=== PATIENT | male | born 2000 | race Caucasian/White ===

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

== ENCOUNTER 2022-03-22 07:00 | Outpatient (RCR) | payer OTHER, SELFPAY ==
--- NOTE | 2022-03-22 09:05 | BH.SGPN.GN ---
Behaviors/Verbalizations/Mental Status: [] Eye contact is good. Motor activity is appropriate. Appearance is casual. Speech is Appropriate. Mood is anxious. Affect is congruent. Thoughts are linear and logical. No evidence of psychosis. Reviewed daily check in sheet and pt reports 2/5 for suicidal thoughts and 2/5 for intent. Pt completed [place] prior to entering group. Client Response/Progress/Benefit: [] Pt participated when prompted. Attentive. Daily symptom tracker notes 4/5 for anxiety, 3/5 for depression, and 2/5 for anger. Introduced himself to the group as this is his first day in IOP. Shared that he had completed the program previously and found it very helpful. He was vague regarding his return however stated that he has some setbacks recently and is hopeful that IOP will help him get better. I think I made the right choice returning. No progress noted as this was pt's first day in IOP. Benefited from group support, encouragement, and feedback. Will continue in IOP to maintain safety, prevent decompensation/re-admission to psych, and to decrease intrusive healthy anxiety thoughts. Narrative Note: []
--- NOTE | 2022-03-22 10:15 | BH.SGPN.GN ---
Behaviors/Verbalizations/Mental Status: [] Client alert and oriented, casually dressed and groomed. Eye contact good. Motor activity appropriate. Speech within normal limits. Affect congruent, mood euthymic. Thoughts linear, logical, no signs of hallucinations or delusions. Client Response/Progress/Benefit: [] Client responded well to session AEB sharing and listening attentively to others. Client provided examples of what weakens our safety net of supports indicating that not having enough supports to lean on can cause issues. Clinician provided psychoeducation on types of support including internal and external support, with client identifying friends and hobbies as other supports. Client participated in experiential activity illustrating the importance of having multiple social supports. Client provided supportive feedback and problem solving throughout group activity. Client participated in group processing of the activity, stating having more social support makes ?things easier?. Client appeared to benefit from increased knowledge of the benefits of social support and greater self-awareness. Client's first day in IOP program and will continue IOP treatment to continue increasing application of healthy coping skills and decreasing negative self-talk to improve daily functioning. Narrative Note: []
--- NOTE | 2022-03-22 12:34 | BH.COMM_ITS ---
Communication Note - Communication with Client Communication Note: Met with pt to complete initial paperwork and [facility], no changes since initial intake assessment. [facility] indicated moderate-severe risk. Pt admits to having passive SI that is fleeting since he was discharged from [facility], but pt denies any intent or plan since discharge. Pt was admitted for SI with methods and intent. Pt reports he can more easily control the thoughts now. Future oriented and hopeful about the program. Denies any access to guns or weapons. Reports ability to maintain safety today. Consulted with Dr. Huizar with plan to admit to [facility] level of care with dx of MDD F33.2 and ALEJANDRO F41.1
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
--- NOTE | 2022-03-23 13:08 | BH.DR.ITP ---
Initial Treatment Plan Patient Information Visit Information: ADMISSION DATE: EXPECTED LOS: 4-6 weeks Problems/Symptoms Problem #1:: Depression Symptom:: Sadness, hopelessness, worthlessness, suicidal ideation, history of self-harm, decreased concentration, low energy Problem #2:: Anxiety Symptom:: Worry, rumination, panic attacks, avoidance
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
--- NOTE | 2022-03-29 13:59 | BH.MTP ---
[facility] Treatment Plan - Patient Information Program Physician:: Evelyn Huizar Primary Therapist:: Heri Blas - Psychiatric Diagnoses Psychiatric Diagnoses:: 1. Major depressive disorder, recurrent, severe without psychosis. 2. Illness anxiety disorder (F45.21). 3. Generalized anxiety disorder. 4. Borderline personality disorder Diagnosis Code(s):: F33.2 - Estimated LOS Estimated LOS (in weeks):: 6 Problem/Goal #1 - Problem/Goal #1 Stated Goal:: Alleviate depressive symptoms and return to previous level of effective functioning AEB by self-report and reduction on the depression and suicidal ideation domains on the DSM-5 outcome measurement. Description of Barriers: intrusive thoughts, long-standing depression, health anxiety, high expectations of self, hx of minimalizing symptoms. Functional Impact: recent psychiatric admission due to suicidal ideations with plan, intrusive health anxiety thoughts often lead to overwhelming anxiety, depression, and distress causing SI. Goal Relevant Strengths/Supports: outgoing, intelligent, motivation, treatment has been effective in the past. - Objectives Objective #1 Stated Objective: Client will work with therapist to develop a ?crisis plan? or concrete plan to implement when overwhelmed emotionally which includes emergency telephone numbers, a list of internal/external coping strategies for SI/overwhelming emotions, lists of supports, warning signs, positive aspects of life, and motivations.? Interventions: Through individual and group counseling will provide education and resources on healthy internal/external coping skills and support to utilize when overwhelmed. Discharge Criteria: Pt will have completed a crisis management plan to implement when overwhelmed with emotions. Target Date: 04/13/22 Review Date: 05/05/22 Objective #2 Stated Objective: Pt will identify at least 2-3 negative self-talk messages used to reinforce depression and guilt and replace thoughts with positive, realistic messages Interventions: Through individual and group counseling will help pt identify distorted, negative beliefs about self and replace with more realistic, affirmative messages. Therapist will use CBT to help pt increase insight to the connection between thoughts, emotions, and behaviors. Therapist will encourage pt to practice thought challenging. Discharge Criteria: Pt will have achieved this goal when can verbalize at least 2 negative self-talk messages and effectively replace those thoughts with affirmative, realistic messages. Target Date: 04/13/22 Review Date: 05/05/22 Problem/Goal #2 - Problem/Goal #2 Stated Goal:: Stabilize anxiety level while increasing ability to function on a daily basis AEB self-report and reduction on scores on the anxiety domain of the DSM-5 outcome measures. Description of Barriers: intrusive thoughts related to health, long-standing depression, health anxiety, high expectations of self, hx of minimalizing symptoms. Functional Impact: Intrusive health anxiety thoughts causing panic attacks, isolation, reassurance seeking, and inability to work. Goal Relevant Strengths/Supports: outgoing, intelligent, motivation, treatment has been effective in the past. - Objectives Objective #1 Stated Objective: Pt will identify 2-3 intrusive/ruminating thoughts and learn 2-3 strategies to overcome, replace, or reduce the value of those thoughts. Interventions: Through individual and group counseling will help pt increase awareness of cognitive distortions, false comfort, and myths about intrusive thoughts. Therapist will encourage pt to focus on stressors in her control and teach pt distress tolerance techniques. Therapist will utilize distractions, mindfulness, and CBT-based strategies to help pt learn how to more effectively manage and cope with her intrusive, health-related thoughts. Therapist will use a workbook to give pt homework and exercises to practice. Discharge Criteria: pt will have met this goal when can report least 2 ways to cope with intrusive thoughts that exacerbate anxiety. Target Date: 04/13/22 Review Date: 05/05/22 Objective #2 Stated Objective: Pt will identify 2-3 anxiety triggers and 2 coping skills to use when feeling anxious to manage anxiety as shown by reducing DSM-5 scores for anxiety domain Interventions: Through group and individual sessions, pt will gain awareness of anxiety triggers and learn numerous techniques to manage anxiety symptoms. Therapist will teach mindfulness and other calming techniques to manage symptoms and increase distress tolerance skills. Discharge Criteria: Pt will have met this goal when pt can identify at least 2 triggers and 2 ways to cope with anxiety and show a reduction of DSM-5 scores for anxiety. Target Date: 04/13/22 Review Date: 05/05/22
--- NOTE | 2022-03-29 13:59 | BH.MDN ---
Multi-Disciplinary Note - Note 45-min Individual Time Started:: 09:10 Date: 03/29/22 Purpose of session/treatment goals addressed:: Reviewed treatment progress and current symptoms. Worked with patient on identifying treatment plan goals. Eye Contact:: Good Motor Activity:: Restless Speech:: Appropriate Mood:: Anxious Affect:: Congruent Thoughts:: Linear, Logical, No evidence of hallucinations/delusions noted Staff Interventions:: psychoeducation on: - intrusive thoughts Client Response:: Pt reports that he is doing better since last IOP visit which was on 03/23/22. Believes that his anxiety has improved however continues to impact his functioning. When asked about his goals pt states to enjoy life more and have less anxiety. Goals include being able to sit through a movie w/o getting overwhelmed with anxiety. Another goal is to have his friend over. Shared that he has not invited his friend over in several months because he is fearful that he will have panic attacks or have to leave abruptly due to his anxiety. Work has also been impacted. Another goal is to get back to his old exercise routine. Currently he is fearful to exercise intensely fearing it may have adverse health effects (heart attack, racing heart, high BP, ETC). Endorses significant health anxiety related to having a heart attack, stroke, or undiagnosed cancer. Hx of obsessive thoughts with mild compulsions since age 7, however in the years preceding his cancer dx he has been hyper-focused on his health. Reassurance seeking behaviors to ease anxiety (Bloodwork, CT scan, medical visits) and seeking reassurance from support that he is going to be OK. Responded well to psychoeducation on health anxiety. Risks/Concerns:: Denies active suicidal ideations, plan, or intent. Currently calm however can escalate quickly when intrusive thoughts occur. Progress Toward Goals/Plan:: Progress noted per pt report. He is utilizing distraction and some thought reframing skills since last visit. He had a CT scan of his brain and bloodwork last week which has decreased some health anxiety, however continues to seek reassurance from his mother that he is doing well. Has begun to take daily walks to distract and he believes this to ease his health anxiety if I'm ok walking than I probably won't have a heart attack. Overall functioning continues to be impacted by anxiety and intrusive thoughts. Pt was given a handout to read on intrusive thoughts which will be primary focus of individual counseling sessions. We will discuss handout next week. Time Stopped:: 09:50
--- NOTE | 2022-03-30 09:00 | BH.SGPN.GN ---
Behaviors/Verbalizations/Mental Status: [] Eye contact is good. Motor activity is appropriate. Appearance is casual. Speech is Appropriate. Mood is anxious. Affect is congruent. Thoughts are linear and logical. No evidence of psychosis. Reviewed daily check in sheet and no reports of suicidal ideations or intent. Client Response/Progress/Benefit: [] Pt was an active participant in group discussion. Attentive. Provided appropriate feedback. Emotion for today is hopeful. Mental health win is I watched a full movie. Shared that in the past couple months his anxiety, restlessness, and intrusive thoughts have kept him from focusing on a movie for any length of time. Often intrusive health anxiety thoughts cause significant anxiety, ruminations, panic, re-assurance. He appears to be implementing calming, mindfulness, and acceptance skills regarding his health anxiety which have proven to be helpful which is why he feels hopeful today. He reports his anxiety has been increased since yesterday however cannot identify any triggers to this. Progress noted per pt report. Benefited from group support, encouragement, and feedback. Will continue in IOP to prevent decompensation/re-admission, increase healthy coping skills, and decrease intrusive thoughts. Narrative Note: []
--- NOTE | 2022-03-30 10:10 | BH.SGPN.GN ---
Behaviors/Verbalizations/Mental Status: []Pt alert and oriented, casually dressed and groomed. Eye contact good. Motor activity appropriate. Speech within normal limits. Affect constricted, mood depressed and anxious. Thoughts linear, logical, no signs of hallucinations or delusions. Client Response/Progress/Benefit: []Pt was an active?participant in group discussion. Group worked together to identify benefits of healthy relationships which include; improves mental health, encouragement, motivation, accountability, validation, connection, someone to share experiences with, and personal growth. Group identified factors that lead to unhealthy relationships which included; co-dependence, gaslighting, not addressing issues, name-calling, and doing only what others want.?Pt?s personal factors were poor communication, avoiding conflict, and lying. Actively participated in group experiential activity and expressed ideas to group. Benefited from increased insight and awareness of benefits of healthy relationships and factors that contribute to unhealthy relationships. Will continue in IOP to reduce negative thinking patterns, improve mood stability, and improve distress tolerance.? Narrative Note: []
--- NOTE | 2022-03-31 09:00 | BH.SGPN.GN ---
Behaviors/Verbalizations/Mental Status: [] Client alert and oriented, casually dressed and groomed. Eye contact good. Motor activity appropriate. Speech within normal limits. Affect constricted, mood euthymic, Thoughts linear, logical, no signs of hallucinations or delusions. Reviewed client?s symptom tracker, no risk for suicidal ideation, plan, or intent as of 03/31/22 Client Response/Progress/Benefit: [] Client responded well to group by actively participating throughout group. Reported that he has a wins of getting here today even with not feeling the greatest and discussed how his motivation has been up and he worked a lot yesterday with feeling good about it. Client reported he does not have too many stressors today and his emotion of the day is optimistic. Client seemed to benefit from feedback from group members and provided input to other group members. He will continue IOP tx to increase coping skills, increase postive self image, and increase overall functioning. Narrative Note: []
--- NOTE | 2022-03-31 10:00 | BH.SGPN.GN ---
Behaviors/Verbalizations/Mental Status: [ ] Eye contact is good. Motor activity is appropriate. Appearance is casual. Speech is Appropriate. Mood is euthymic, Affect is congruent. Thoughts are linear and logical. No evidence of psychosis. Client Response/Progress/Benefit: [] Client was an active participant during interactive group discussions. Attentive during psychoeducation on the six types of boundaries (physical, emotional, intellectual, sexual, time, and material) AEB note-taking. Along with peers contributed to interactive discussion on defining what a boundary is in mental health. Client along with peers identified challenges to setting boundaries which included; fear of other's response, guilt, fear of rejection, fear of disappointing the other person, etc. Client along with peers identified the benefits to setting boundaries such as feeling empowered, decreased stress, and increased time for self-care. Group discussed the mental health benefits to establishing boundaries at work, school, and home. Client benefited from increased awareness and insight on the importance/benefit to setting health boundaries. Will continue in IOP to increase positive self image, identify cognitive distortions, and improve functioning. Narrative Note: [] Behaviors/Verbalizations/Mental Status: [ ] Eye contact is good. Motor activity is appropriate. Appearance is casual. Speech is Appropriate. Mood is euthymic, Affect is congruent. Thoughts are linear and logical. No evidence of psychosis. Client Response/Progress/Benefit: [] Client was an active participant during interactive group discussions. Attentive during psychoeducation on the six types of boundaries (physical, emotional, intellectual, sexual, time, and material) AEB note-taking. Along with peers contributed to interactive discussion on defining what a boundary is in mental health. Client along with peers identified challenges to setting boundaries which included; fear of other's response, guilt, fear of rejection, fear of disappointing the other person, etc. Client along with peers identified the benefits to setting boundaries such as feeling empowered, decreased stress, and increased time for self-care. Group discussed the mental health benefits to establishing boundaries at work, school, and home. Client benefited from increased awareness and insight on the importance/benefit to setting health boundaries. Will continue in IOP to increase positive self image, identify cognitive distortions, and improve functioning. Narrative Note: []
--- NOTE | 2022-03-31 11:00 | BH.SGPN.GN ---
Behaviors/Verbalizations/Mental Status: [] Client alert and oriented, casually dressed and appropriately groomed. Eye contact good. Motor activity normal. Speech within normal limits. Affect congruent, mood anxious and euthymic. Thoughts linear and intact. no signs of delusions or hallucinations. Client Response/Progress/Benefit: [] Client responded well to session AEB listening attentively to peers, providing input, as well as taking notes throughout. Client contributed on psychoeducation on different boundary setting styles. Reports connecting most with ridged and porous styles of boundary setting, identifying difficulties opening self up to new people, but when they do they have difficulty saying ?no? to others or allowing himself to make his own self-care needs a priority. Participated in small group discussion brainstorming various strategies for improving healthy boundary setting. Seemed to benefit from increased awareness of how different boundary styles can impact mental health. Will continue IOP tx to increase consistent application of skills, increase self-care and anxiety management, and prevent decompensation. Narrative Note: []
--- NOTE | 2022-04-05 09:00 | BH.SGPN.GN ---
Behaviors/Verbalizations/Mental Status: [] Eye contact is good. Motor activity is appropriate. Appearance is casual. Speech is Appropriate. Mood is anxious. Affect is congruent. Thoughts are linear and logical. No evidence of psychosis. Reviewed daily check in sheet and pt reports 1/5 for suicidal thoughts and 1/5 for intent. This is baseline. Client Response/Progress/Benefit: [] Pt was an active participant in the group discussion. Attentive. Provided appropriate feedback. Emotion for today is ?optimistic?. Daily symptom tracker notes 3/5 for anxiety, 2/5 for depression and irritability. Pt states, ?my anxiety is still there? and impacting him. He has been utilizing distraction skills for the past few days stating ?I?ve been baking a lot of bread? reporting that he baked 6 loaves of bread. He shared some recent events which had increase his anxiety and his struggles with managing them. Group provided support and feedback which was helpful. Will continue in IOP to prevent decompensation/re-admission, decrease intrusive health anxiety thoughts, and improve functioning to return to work. Narrative Note: []
--- NOTE | 2022-04-05 10:50 | BH.SGPN.GN ---
Behaviors/Verbalizations/Mental Status: [] Client alert and oriented, casually dressed and groomed. Eye contact good. Motor activity appropriate. Speech within normal limits. Affect congruent, mood euthymic. Thoughts linear, logical, no signs of hallucinations or delusions. Client Response/Progress/Benefit: [] Client responded well to session, contributing to discussion and engaged during the activity. Group identified the benefits of change which included: personal growth, improving mental health, experiencing more, and better relationships. Worked with the group to identify barriers to change, which included: uncomfortable emotions such as anxiety and depression, lack of motivation, lack of energy, and confidence. Client participated along with group in activity where they identified and discussed the emotions related to change. Client participated in discussion on the change process and personal experiences with implementing change in past. Client discussed personal barriers of anxiety and depression preventing him from making change happen. Benefited from increased awareness and understanding of emotions, benefits, and barriers related to change. Will continue IOP tx to continue to increase overall functioning and utilize coping skills. Narrative Note: []
--- NOTE | 2022-04-05 11:00 | BH.SGPN.GN ---
Behaviors/Verbalizations/Mental Status: [] Client alert and oriented, casually dressed and groomed. Eye contact good. Motor activity appropriate. Speech within normal limits. Affect congruent, mood euthymic. Thoughts linear, logical, no signs of hallucinations or delusions. Client Response/Progress/Benefit: [] Client responded well to session, attentive AEB participating in activity and providing input in group. Did well to process activity and work with group to relate the strategies used to overcome barriers in the activity to managing change in own life. Client shared a change they would like to make is to spend less time worrying. Client stated currently reports being in the action stage. Identified goal to work on to achieve change behavior would be to take time each day to practice mindfulness. Appeared to benefit from identifying a small goal to work towards. Client will continue IOP tx to reduce presenting anxiety, gain healthy coping skills, and improve daily functioning. Narrative Note: []
--- NOTE | 2022-04-06 10:10 | BH.SGPN.GN ---
Behaviors/Verbalizations/Mental Status: [] Eye contact is good. Motor activity is appropriate. Appearance is disheveled. Speech is Appropriate. Mood is anxious. Affect is congruent. Thoughts are linear and logical. No evidence of psychosis. Client Response/Progress/Benefit: [] Pt was a active participant in group discussions. Attentive during psychoeducation. Along with peers pt participated in interactive discussions in which group defined self-care, discussed the benefits to self-care, and identified common myths surrounding self-care which included; self-care is selfish, self-care is self-indulgent, self-care is just personal hygiene, self-care should be fun, self-care is too time consuming, I don?t deserve it, self-care means I?m not being productive. Pt and peers broke into smaller group and worked together to bust the myths associated with self-care. Benefited from increased awareness of the self-care and its benefits. Will continue in IOP to maintain safety, prevent decompensation, increase healthy coping, and improve functioning. Narrative Note: []
--- NOTE | 2022-04-06 11:25 | BH.MDN_ITS ---
Multi-Disciplinary Note - Note 45-min Individual Time Started:: 09:00 Date: 04/06/22 Purpose of session/treatment goals addressed:: Reviewed current symptoms and progress in IOP. Addressed treatment plan goals 1 and 2. Eye Contact:: Good Motor Activity:: Restless Appearance:: Disheveled Speech:: Appropriate Mood:: Anxious Affect:: Congruent Thoughts:: Linear, Logical, No evidence of hallucinations/delusions noted Staff Interventions:: psychoeducation on: - intrusive thoughts. Client Response:: Pt states I feel really good. When asked to elaborate he reports that since last session he has accomplished some goals that he set with himself which included; having a friend over, sitting through a whole movie, and not excessively seeking reassurance from others. Intrusive health thoughts continue however have only resulted in one panic attack which occurred around 4am this AM. Pt states that he woke up feeling slightly dizzy and then I did a body scan which is where he assesses any somatic issues. This led to increased fear, anxiety, and worry as he believed that things were a little off. Became hype focused and then panic set in. Implemented radical acceptance skills I'm not dying this is not an emergency, etc. and after 15 minutes managed to calm self. He viewed this as progress as he managed the health anxiety himself and did not seek re-assurance from family. He shared that he often has his moth er check his pills before he takes them. He has fears that he might take the wrong ones or miss ones. Taking the wrong pills or missing a does is an intrusive thought that ruminates and can lead to fears that he will decompensate. He has been taking his pills himself for the past few days and working through the doubting thoughts. His primary coping skill is distraction however is implementing internal coping skills as well. He did not follow through with assignment to read Chapter one of intrusive thoughts workbook so we reviewed together. He connected well with information and promises to read it this afternoon. Risks/Concerns:: No concerns or issues noted. Progress Toward Goals/Plan:: Progress noted per pt report. Pt reports decreased health anxiety and increased use of healthy coping skills. Implementing radical acceptance and 'dominguez mind' affirmations that we have developed in previous session. He accomplished personal goals which have been troublesome with increased intrusive thoughts and anxiety. Consistent and engaged in IOP. Reports that he finds the program supportive and educational. Medication compliant. Connected well with psychoeducation on intrusive thoughts. Insight regarding trigger to recent relapse which was leg injury several weeks ago. This resulted in him hyper- focusing more on his health and fearing possible consequences such as infection, heart issues, nerve damage, etc. While making progress he continues to report daily intrusive thoughts regarding her his and heart. Continues to have panic attacks associated with instrusive thoughts which can impact his whole day. Restless throughout the whole session. Hx of minimizing symptoms and withholding struggles in the past with IOP staff. Will continue in IOP to prevent decompensation, increase healthy coping, and improve functioning to return to work. He is thinking of returning to work next week. We discuss slow transition. Time Stopped:: 09:45
--- NOTE | 2022-04-06 11:27 | PCM.BH.PN ---
Progress Note Progress Note: History of Present Illness/Interim History: [] The patient is a 21-year-old male with a history of depression, anxiety, OCD, ADHD who is seen in follow-up at the [facility] behavioral health IOP program. I last saw the patient 2 weeks ago and at that time his Prozac had been increased to 30 mg. In addition he states that his outpatient provider increased his Prozac to 40 mg p.o. daily 2 days ago. He is tolerating the medication well and has no side effects. He feels he is enjoying the IOP program and learning valuable skills to help with his mental health issues. He feels he is doing much better and states that in each of the last 2 weeks he has seen improvement in his mood and anxiety. He still has occasional hopelessness but less than before. He has not had any headaches nausea or vomiting since his I last saw the patient. He denies any self-harm in the last 2 weeks. His panic attacks have decreased in the past 2 weeks from 3 to 4 days a week to once or twice a week now and when he does get a panic attack it is much less severe than it used to be. His sleep continues to be fine at 8 to 10 hours a night. He denies any passive thoughts of , suicidal ideation, plan for suicide, homicidal ideation, hallucinations or delusions. He is much less anxious about having an illness. The patient states he has weighed himself about once a week and has had no weight gain since starting the Zyprexa. Current Psychiatric Medications: [] Prozac 30 mg p.o. daily x2 weeks; increased to 40 mg p.o. daily 2 days ago; clonidine 0.2 mg p.o. nightly; Zyprexa 2.5 mg p.o. twice a day and he takes an extra one fourth a pill a day if he feels severe anxiety; BuSpar 5 mg p.o. twice daily. Mental Status Examination: [] The patient is a 21-year-old male who appears normal for stated age and is seen wearing a mask due to the pandemic. He is casually dressed and groomed with good hygiene. He is ambulatory with a normal gait and alert and oriented to person place and time. He has no psychomotor retardation or agitation. Eye contact is good and speech is normal rate and rhythm and fluent with no pressure. Mood is mildly depressed. Affect is full and normal. Thought processes goal-directed and organized. Thought content: There is no evidence of passive thoughts of , suicidal ideation, homicidal ideation, hallucinations or delusions. He is much less focused on worries about his health. Reality testing is intact. Impulsivity is moderate. Insight is fair. Judgment is intact. Diagnoses: [] 1. Major depressive disorder, recurrent, severe without psychosis 2. Generalized anxiety disorder 3. Illness anxiety disorder 4. Borderline personality disorder 5. History of OCD 6. Benzodiazepine use disorder, in remission for 8 months 7. 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 He felt safe during the interview and if it anytime he does not feel safe he will let us know or go to the emergency room. The risks, options, possible complications and side effects of the medications were again discussed with the patient and he understands and accepts these. The patient agrees that he may take an extra one fourth of a 5 mg Zyprexa tablet if he feels extreme exact anxiety once a day. He will decrease this as the Prozac takes effect and he will stop this soon. He will continue to follow-up with his outpatient medical and psychiatric providers.
== END 2022-04-06 23:59 ==
LOC: BHIOP 07:00
PROVIDERS: PCP Pediatrics; Referring Provider Psychiatry & Neurology Psychiatry; Visit Provider Psychiatry & Neurology Psychiatry
DX: F33.2 Major depressive disorder, recurrent severe without psychotic features (principal); F41.1 Generalized anxiety disorder; F41.9 Anxiety disorder, unspecified; F60.3 Borderline personality disorder; F42.9 Obsessive-compulsive disorder, unspecified; F90.9 Attention-deficit hyperactivity disorder, unspecified type; Z79.899 Other long term (current) drug therapy
CPT/HCPCS: S9480; 90834; 90853

== ENCOUNTER 2022-04-07 07:43 | Outpatient (RCR) | payer OTHER, SELFPAY ==
--- NOTE | 2022-04-07 09:00 | BH.SGPN.GN ---
Behaviors/Verbalizations/Mental Status: [] Eye contact is good. Motor activity is appropriate. Appearance is casual. Speech is Appropriate. Mood is euthymic. Affect is full. Thoughts are linear and logical. No evidence of psychosis. Reviewed daily check in sheet and pt reports 1/5 for suicidal ideations and 1/5 for intent. This is baseline for patient and per report is long-standing passive thoughts of . Client Response/Progress/Benefit: [] Pt was an active participant in group discussion on healthy ways to improve sleep. Attentive. Provided appropriate feedback. Emotion for today is ?anxious?. Pt had a very brief check-in today stating that ?I?m feeling good about being here today however last night was very stressful?. He briefly the thoughts and events that made him anxious and stressed yesterday. Group provided support, encouragement, and feedback which was helpful. Progress noted. Will continue in IOP to prevent decompensation/re-admission, maintain safety, and improve functioning. Narrative Note: []
--- NOTE | 2022-04-12 10:05 | BH.SGPN.GN ---
Behaviors/Verbalizations/Mental Status: [] Client alert and oriented, neatly dressed and groomed. Eye contact good. Motor activity appropriate. Speech within normal limits. Affect congruent, mood euthymic. Thoughts linear, logical, no signs of hallucinations or delusions. Client Response/Progress/Benefit: [] Client was an active participant in group discussions. Attentive during psychoeducation on 4 types of conflict styles (Competing, Collaborating, Avoiding, and Accommodating). Worked with group to define conflict and identify how conflict is helpful. With peers identified barriers to addressing or managing conflict which included: fear of upsetting others, avoidance, high emotions, and poor communication. Client believes he uses the accommodating and competing style the most with initially accommodating, but if someone disrespects him, goes directly to competing. Client shared this style leads him to have a hard time having healthy relationships. Benefited from group due to increase insight and awareness of benefits to conflict, conflict styles, and obstacles to managing conflict. Will continue in IOP to utilize positive coping skills, gain healthier core beliefs, and increase self worth. Narrative Note: []
--- NOTE | 2022-04-12 13:18 | BH.MDN ---
Multi-Disciplinary Note - Note 45-min Individual Time Started:: 11:15 Date: 04/12/22 Purpose of session/treatment goals addressed:: Reviewed progress and current symptoms. Reviewed DSM outcomes for 3 week treatment review. Reviewed homework assignment related to intrusive thoughts. Eye Contact:: Good Motor Activity:: Restless Appearance:: Disheveled Speech:: Appropriate Mood:: Anxious Affect:: Congruent Thoughts:: Linear, Logical, No evidence of hallucinations/delusions noted Staff Interventions:: psychoeducation on: - dominguez mind, worried voice, and false comfort., mindfulness skills, reviewed DSM-5 Client Response:: For a majority of the session we reviewed homework assignment from Overcoming Intrusive Thoughts workbook. Therapist and pt discussed the concepts of worried voice, false comfort, and dominguez mind and what roles they play in intrusive thoughts. We developed dominguez mind affirmations to use when intrusive health anxiety occurs. We discussed the role of acceptance in managing intrusive thoughts. Pt was receptive. He read most of the reading assignment and reports the he connected with the idea. Pt reports anxiety moments over the long weekend which was triggered by a 3 second sharp pain in his ribs. This lead to intrusive thoughts that he was having a heart attack which followed me for a couple hours. Focused and ruminated on the cause of the pain which led to anxiety and being in my head. Overall he reports that he managed the intrusive thoughts better than I would have several weeks ago. It did not escalate to panic attack. Risks/Concerns:: no risks or concerns noted. Progress Toward Goals/Plan:: Progress noted per pt report. He continues to have anxiety, ruminations, and intrusive thoughts centered on his health which impact him daily. Reports decreased intensity, frequency, and duration. He did return to work this weekend which is progress. Outcome scores show an overall 33% reduction in symptoms since admission. Pt had a 25% reduction reduction in the depression domain, 100% reduction in suicidal ideation domain, and a 27% reduction in the anxiety domain. Pt verbalized that he is learning new coping skills and insight which has been helpful. He does continue to have significant anxiety and frequent intrusive thoughts which can last hours and impact his functioning. Will continue in IOP to prevent decompensation, increase healthy coping skills, decrease intrusive thoughts, and improve functioning. Time Stopped:: 12:00
--- NOTE | 2022-04-13 09:00 | BH.SGPN.GN ---
Behaviors/Verbalizations/Mental Status: [] Eye contact is good. Motor activity is appropriate. Appearance is casual. Speech is Appropriate. Mood is euthymic. Affect is full. Thoughts are linear and logical. No evidence of psychosis. Reviewed daily check in sheet and pt reports 1/5 for suicidal thoughts, and 1/5 for intent. This has been baseline for pt since starting the program. Client Response/Progress/Benefit: [] Pt was an active participant in group discussion. Attentive. Provided appropriate feedback. Daily symptom tracker notes 3/5 for depression and 2/5 for anxiety. Mental health wins reported to be I'm keeping busy. He shared with the group that he returned to work and believes that he has been managing his mental health better and is transitioning back to full-time. He also agreed to take on a side project to make some extra money. Reports that he is implementing his coping skills throughout the day and is keeping his health anxiety in check. Shared that he had a headache and some nausea yesterday and was able to manage appropriately utilizing some skills learned on acceptance of current somatic symptoms. Did not seek re-assurance through support or internet searching. Progress noted per pt report. Benefited from group support, encouragement, and feedback. 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 Narrative Note: []
--- NOTE | 2022-04-13 11:15 | BH.SGPN.GN ---
Behaviors/Verbalizations/Mental Status: []Pt alert and oriented, casually dressed and groomed. Eye contact good. Motor activity appropriate. Speech within normal limits. Affect constricted, mood anxious and depressed. Thoughts linear, logical, no signs of hallucinations or delusions. Client Response/Progress/Benefit: []Pt participated at times during group discussions. Attentive during psychoeducation on the 4 A's of Coping with Stress (Avoid, Alter, Adapt, Accept). Participated in experiential activity in which group members had to utilize stress management skills in the moment. Pt agreed with peers that their anxiety and urge to stop was a barrier but pt worked well with peers to problem-solve. Pt engaged in review of the 4 A?s and picked wanting to work on adapting his definition of success and adjusting his expectations for progress. Benefited from processing in the moment stress management strategies and identifying new ways to cope with stress. Will continue in IOP tx to reduce anxiety, increase emotional regulation skills, and reduce negative thinking patterns. ? Narrative Note: []
--- NOTE | 2022-04-13 13:58 | BH.TPR ---
Treatment Plan Review Date of Admission:: 03/21/22 Date of Treatment Plan Review:: 04/13/22 Admitting Diagnoses:: MDD. ALEJANDRO. Illness Anxiety Disorder Current Diagnoses:: MDD. ALEJANDRO. Illness Anxiety Disorder Patient's Response to Treatment:: Pt has had consistent attendance while in IOP. He is engaged in both individual and group counseling. Appears motivated and reports implementing skills learned in the program. Self-reports decrease in panic attacks, health anxiety, and depression. Denies any suicidal ideations in the past two week. Reports passive thoughts of and survival ambivalence when overwhelmed or significantly anxious. Reports decreased intensity, frequency, and duration. He did return to work this weekend which is progress. Outcome scores show an overall 33% reduction in symptoms since admission. Pt had a 25% reduction in the depression domain, 100% reduction in suicidal ideation domain, and a 27% reduction in the anxiety domain. Pt verbalized that he is learning new coping skills and insight which has been helpful. Status of Current Problems and Symptoms: Pt continues to report daily intrusive thoughts regarding health anxiety. He reports that he completes a body scan every morning when he wakes up in which he assesses his health and any abnormalities. This causes anxiety in the AM which can impact his day. If he is alerted to any abnormalities it will lead to rumination and intrusive thoughts of possible heart attack, tumor, etc. He reports that these thoughts have decreased in duration and severity through skills learned in IOP however they do continue to impact him. He notes that panic attacks that were occurring 3-4 times weekly prior to admission have decreased significant with none in the past week. At high risk for suicidal ideations and harm to self when in anxiety attacks triggers by healthy anxiety. Problem #1 Problem Name:: Depression Status of Goals:: Ob1- (In progress) pt has reported learning internal and external coping skills in group counseling to implement when overwhelmed emotionally. While he has a very basic plan for situations dealing with acute suicidality he needs to elaborate more on this plan. Ob2- Not complete (in progress) Team Recommendations:: Continue with current goals. The more we get to know patient it is becoming clearer that his depression/suicidal ideations stem mostly from panic and anxiety related to his health. Managing and learning skills to manage intrusive health anxiety thoughts are very important to prevent depression and SI. Problem #2 Problem Name:: Anxiety Status of Goals:: obj1- (in progress). Pt has read and received psychoeducation on overcoming intrusive thoughts and is begining to implement strategies to manage these thoughts. obj2- complete. Pt can list several coping skills, mindfullness skills, and CBT skills to utilize in times of distress. Team Recommendations:: Continue with current plan
--- NOTE | 2022-04-19 09:05 | BH.SGPN.GN ---
Behaviors/Verbalizations/Mental Status: [] Eye contact is good. Motor activity is appropriate. Appearance is disheveled. Speech is Appropriate. Mood is anxious. Affect is congruent. Thoughts are linear and logical. No evidence of psychosis. Reviewed daily check in sheet and no reports of suicidal ideations or intent. Client Response/Progress/Benefit: [] Pt was an active participant in group discussion. Attentive. Provided appropriate feedback. Daily symptom tracker notes 09/11 for depression and 5 for anxiety. Pt shared with the group that he had ?severe anxiety? over the weekend. He was vague regarding what occurred, however did report that he utilized skills to mange it. ?It was with me the entire day?. He has returned to work which involves physical activity which increases his heart rate and pulse triggering intrusive healthy anxiety thoughts. Benefited from group support, encouragement, and feedback. Will continue in IOP to prevent decompensation/re-admission, improve functioning, and decrease intrusive thoughts. Narrative Note: []
--- NOTE | 2022-04-19 10:05 | BH.SGPN.GN ---
Behaviors/Verbalizations/Mental Status: [] Client alert and oriented, causally dressed and groomed. Eye contact good. Motor activity appropriate. Speech within normal limits. Affect congruent, mood euthymic. Thoughts linear, logical, no signs of hallucinations or delusions. Client Response/Progress/Benefit: [] Client connected with topic of Anxiety and participated throughout, providing input and taking notes. Attentive during psychoeducation on different anxiety disorders and participated throughout interactive discussion defining anxiety and identifying cognitive and physiological symptoms of anxiety. Client asked questions and gave insight to group on the differences she notices when she is experiencing stress vs anxiety. Common cognitive symptoms identified by group included: ?what if thoughts?, all or nothing thinking, and predicting the future type thoughts. Physiological symptoms reported by patient included: sweating, increased heart rate, and head ache. Benefited from increased awareness and insight on anxiety and its impact. Will continue IOP tx to increase use of coping skills, decrease presenting symptoms of anxiety, and increase overall functioning. Narrative Note: []
--- NOTE | 2022-04-19 11:05 | BH.SGPN.GN ---
Behaviors/Verbalizations/Mental Status: [] Client alert and oriented, casually dressed and neatly groomed. Eye contact good. Motor activity appropriate. Speech within normal limits. Affect congruent, mood euthymic, Thoughts linear, logical, no signs of hallucinations or delusions. Client Response/Progress/Benefit: [] Client was an active participant in group discussion and providing good insight to peers. Reviewed safety behaviors he engages in that reinforce anxiety. Attentive during psychoeducation on mindfulness coping skills and their impact on mental health wellness. The group worked together to brainstorm anxiety reduction strategies. Client shared menu of relaxation strategies he will utilize which included taking a a hot shower, mindfulness, and meditation. Client seemed to benefit from increased repertoire of anxiety reduction skills. Client will continue IOP tx to increase self worth, improve overall functioning, and gain healthy coping skills. Narrative Note: []
--- NOTE | 2022-04-20 09:05 | BH.SGPN.GN ---
Behaviors/Verbalizations/Mental Status: [] Eye contact is good. Motor activity is appropriate. Appearance is disheveled. Speech is Appropriate. Mood is anxious. Affect is congruent. Thoughts are linear and logical. No evidence of psychosis. Reviewed daily check in sheet and pt reports 1/5 for suicidal thoughts and 1/5 for intent. This is baseline. Client Response/Progress/Benefit: [] Pt was an active participant in group discussion. Attentive. Daily symptom tracker notes 2/5 for depression and anxiety. Pt reports that he is ?managing stressors well?. He shared that his house is currently going through renovations and that there is overwhelming stimuli occurring throughout the day which increases his anxiety, irritability, and distress. States that it has been challenging to get good sleep. This has also impacted his routine which causes unease. Discussed how this environmentally stimuli has impacted his mood and mental health. He reports that he is trying to implement self-care skills such as walks away from the house and practicing acceptance. Progress noted. Benefited from group support, encouragement, and feedback. Will continue in IOP to maintain safety, prevent decompensation/re-admission, and decrease intrusive thoughts. Narrative Note: []
--- NOTE | 2022-04-20 11:00 | BH.SGPN.GN ---
Behaviors/Verbalizations/Mental Status: []Pt alert and oriented, casually dressed and groomed. Eye contact good. Motor activity restless-leg shaking. Speech within normal limits. Affect constricted, mood euthymic and anxious. Thoughts linear, logical, no signs of hallucinations or delusions. Client Response/Progress/Benefit: []Pt responded well to session as evidenced by Pt listening attentively to others and providing strategies during discussion.? Pt identified personal warning signs for crisis and gained further awareness of earliest warning signs. Pt created a crisis action plan to help Pt better manage warning signs for crisis. Pt?s action plan included warning signs such as racing thoughts, loss of motivation, and crying more often. Pt?s coping skills included walking, redirecting himself, setting small goals, baking bread, and reaching out to support. Pt appeared to benefit from creating a crisis action plan and increasing self-awareness. Pt will continue IOP tx to reduce anxiety and distortions that reinforce anxiety, improve daily functioning, and increase self-confidence. Narrative Note: []
--- NOTE | 2022-04-20 12:05 | PCM.BH.PN_ITS ---
Progress Note Progress Note: History of Present Illness/Interim History: [] The patient is a 21-year-old male with a history of depression, anxiety, OCD and ADHD who is seen in follow-up at the [facility] behavioral health IOP program. I last saw the patient 2 weeks ago and at that time no medication changes were made. The patient states that he is feels he is benefiting greatly from the IOP program. He is learning valuable skills to help him deal with his mental health issues. His mood is much better and he feels he is not depressed anymore but is mostly just feeling anxious at times. He still has some health anxiety but this has lessened somewhat. He has some feelings of panic but less than before and he has had not had any full-blown panic attacks in recent weeks. He returned to work and is functioning fine at work and at home. He denies any hopelessness now. He has still headaches once or twice a week but no nausea or vomiting. He denies any self-harm in the last month. He denies passive thoughts of , suicidal ideation, plan for suicide, homicidal ideation, hallucinations or delusions. He has not gained any weight and in fact lost 2 pounds on the Zyprexa. He is eating well. Current Psychiatric Medications: [] Prozac 40 mg p.o. daily (dose increased 2 weeks ago); clonidine 0.2 mg p.o. nightly; Zyprexa 2.5 mg p.o. twice a day and he takes an extra 1/4 pill a day of Zyprexa if he feels severe anxiety; BuSpar bar 5 mg twice daily. Mental Status Examination: [] The patient is a 21-year-old male who appears normal for stated age and is seen wearing a mask due to the pandemic. He is ambulatory with a normal gait and casually dressed and groomed with good hygiene. He has no psychomotor agitation or retardation. Eye contact is good and speech is normal rate and rhythm and fluent with no pressure. Mood is anxious. Affect is full and normal. Thought process is goal-directed and organized. Thought content: There is no evidence of passive thoughts of , suicidal ideation, homicidal ideation, hallucinations or delusions. He is much less focused on worries about illness. Reality testing is intact. Impulsivity is moderate. Insight is fair. Judgment is intact. Diagnoses: [] 1. Major depressive disorder, recurrent, severe without psychosis (resolving) 2. Generalized anxiety disorder 3. Borderline personality disorder 4. Illness anxiety disorder 5. History of OCD 6. Benzodiazepine use disorder in remission for 8 months 7. 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 He felt safe during the interview and if it anytime he does not feel safe he will let us know or go to the emergency room. The risks, options, possible complications and side effects of the medications were again discussed with the patient and he understands and accepts these. No medication changes were made today as the patient does not wish to go up on his Prozac again yet. He will continue to follow-up with his outpatient medical and psychiatric providers and I will see the patient in follow-up on a regular basis while he is in the IOP program.
--- NOTE | 2022-04-21 09:05 | BH.SGPN.GN ---
Behaviors/Verbalizations/Mental Status: [] Eye contact is good. Motor activity is appropriate. Appearance is casual. Speech is Appropriate. Mood is depressed. Affect is flat. Thoughts are linear and logical. No evidence of psychosis. Reviewed daily check in sheet and pt reports 1/5 for suicidal ideation and 1/5 for intent. baseline Client Response/Progress/Benefit: [] Pt was an active participant in group discussions. Attentive. Provided appropriate feedback. Daily symptom tracker notes 25 for depression and anxiety. He originally reported feeling ?bad? that he did not accomplish anything yesterday, however group was able to reframe and point out that sometimes its Ok to ?nap? and rest. Group also normalized taking a day to decompress due to recent stressors. Overall, he reports that he is managing his emotions well to some ?family stressors?. Responded well to and benefited from reframing from group. Emotion for today is ?determined?. Will continue in IOP to prevent decompensation/re-admission, increase healthy coping, and decrease intrusive thoughts. Narrative Note: []
--- NOTE | 2022-04-21 14:13 | BH.MDN ---
Multi-Disciplinary Note - Note 60-min Individual Time Started:: 10:10 Date: 04/21/22 Purpose of session/treatment goals addressed:: Reviewed current symptoms and progress. Addressed treatment plan goal 2 Eye Contact:: Good Motor Activity:: Appropriate Appearance:: Disheveled Speech:: Appropriate Mood:: Euthymic Affect:: Full Thoughts:: Linear, Logical, No evidence of hallucinations/delusions noted Staff Interventions:: psychoeducation on: - Anxiety fear ladder, goal setting Client Response:: Pt states I had a regression last week but since then I've been doing well. He continues to have daily intrusive thoughts regarding his anxiety however this has decreased in duration, frequency, and intensity. He reports implementing skills learned in groups. I'm thinking more rationally He is able to use his dominguez mind rather that he worried mind or false comfort voices. Decreased need for reassurance from his support for taking his medication to managing his health anxiety. My lens of things has changes and I don't spiral as hard. He has been walking daily and has returned to work. 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 Has managed these intrusive thoughts well. We discussed the fear ladder and how he has been setting small goals to get back to intense exercise and working out daily which he enjoyed in the past. We made plan to attempt to a couple sets of small amount of weight for two days in the next week. Risks/Concerns:: No risks or concerns noted. Progress Toward Goals/Plan:: Progress noted per pt report. Consistent and engaged in treatment. His anxiety and intrusive thoughts continue to impact certain parts of his life (mainly social). Denies any panic attacks or SI in the past several weeks. While improvement is noted he is not back to his baseline prior to psychiatric admission. Introduced fear ladder today with hopes of identifying and working through certain stages while he remains in IOP. Will continue in IOP to prevent decompensation/readmission, increase healthy coping, and decrease intrusive thoughts. Time Stopped:: 11:00
--- NOTE | 2022-04-27 09:00 | BH.SGPN.GN ---
Behaviors/Verbalizations/Mental Status: []Pt alert and oriented, casually dressed and groomed. Eye contact good. Motor activity appropriate. Speech within normal limits. Affect constricted, mood dysthymic. Thoughts linear, logical, no signs of hallucinations or delusions. Reviewed pt?s symptom tracker, no risk for suicidal ideation, plan, or intent as of 04/27/22 Client Response/Progress/Benefit: [] Pt responded well to session, contributing ideas to peers and receptive to feedback. Pt reports feeling a little gloomy this morning. Pt shared his brother has been depressed lately and this is out of character for his brother, so it is upsetting to pt. Discussed ways pt can be a good support without taking on too much. Pt reported he continues to use skills, but pt struggles with behavioral activation at times. Pt self-reports he is taking his medications consistently and he has been attending consistently. Pt appeared to benefit from reflecting on his use of skills. Pt will continue IOP tx to further reduce negative thinking, increase self-confidence, and improve mood stability. Narrative Note: []
--- NOTE | 2022-04-27 10:10 | BH.SGPN.GN ---
Behaviors/Verbalizations/Mental Status: []Pt alert and oriented, casually dressed and appropriately groomed. Eye contact good. Motor activity appropriate. Speech within normal limits. Affect congruent, mood euthymic. Thoughts linear, logical, no signs of hallucinations or delusions. Client Response/Progress/Benefit: []Pt was an engaged participant AEB listening to others and taking notes. Attentive during psychoeducation and participated in group activity. Participated in interactive group discussion on internal and external barriers to mental health progress. Pt described current reality as feeling like he is faced with big decisions for life which lead to feeling anxious and stressed. Reported desired reality is making decisions for his life by taking action vs overthinking and doing nothing. Client shared personal barriers to desired realty include: past trauma, worries, family stress, intrusive thoughts, and health anxiety. Benefited from increased awareness of current barriers to progress as well as current/desired realities. Pt will continue IOP tx to decrease anxiety, increase consistent use of healthy coping, and prevent decompensation.
--- NOTE | 2022-04-27 11:10 | BH.SGPN.GN ---
Behaviors/Verbalizations/Mental Status: []Client alert and oriented, casually dressed and groomed. Eye contact good. Motor activity appropriate. Speech within normal limits. Affect congruent, mood euthymic. Thoughts linear, logical, no signs of hallucinations or delusions. Client Response/Progress/Benefit: []Client engaged during activity and contributed as group brainstormed ideas on how to cope with internal barriers that keep clients stuck from moving towards goals. Able to identify barriers to desired reality. Client identified wanting to work on overcoming the barrier of intrusive thoughts by more consistently practicing grounding and sitting with the uncomfortable. Shared that this will help him to feel a little more present and less anxious. Benefited from group by identifying obstacles and solutions to desired reality. Client will continue IOP tx to reduce depression and improve insight into own mental health symptomology, increase use of healthy coping skills, as well as continue to improve overall functioning. Narrative Note: []
--- NOTE | 2022-04-28 09:05 | BH.SGPN.GN ---
Behaviors/Verbalizations/Mental Status: [] Eye contact is good. Motor activity is appropriate. Appearance is casual. Speech is Appropriate. Mood is anxious. Affect is congruent. Thoughts are linear and logical. No evidence of psychosis. Reviewed daily check in sheet and pt reports 1/5 for suicidal thoughts and 1/5 for intent. This is baseline. Client Response/Progress/Benefit: [] Pt was an active participant in group discussions. Attentive. Daily symptom tracker notes 3/5 for anxiety and 2/5 for depression. Emotion for today is anxious. He reports depression and worry related mostly to his brother who is going through ?significant depression?. He is trying to simply provide support to his brother however seeing his brother who has not had a history of mental health struggles impacts pt greatly. Able to identify a couple cognitive distortions that are increasing his ruminating thoughts. Benefited from group support, encouragement, and feedback. Will continue in IOP to prevent decompensation/re-admission, maintain safety, and decrease intrusive thoughts. Narrative Note: []
--- NOTE | 2022-04-28 10:10 | BH.SGPN.GN ---
Behaviors/Verbalizations/Mental Status: []Pt alert and oriented, casually dressed and groomed. Eye contact good. Motor activity appropriate. Speech within normal limits. Affect congruent, mood calm. Thoughts linear, logical, no signs of hallucinations or delusions. Client Response/Progress/Benefit: []Pt responded well to session AEB taking notes throughout and listening attentively to others. Pt was attentive throughout group activity identifying famous individuals and how they overcame failure to be successful. Pt helped group identify how fear of failure can impact mental health and relationships. Pt personally identified it leads to a lot of avoidance. Pt participated in experiential activity and was able to keep a positive perspective which helped peers. Appeared to benefit from increased knowledge of fear of failure. ?Will continue IOP tx to challenge negative thinking, increase motivation to rejoin hobbies, and improve daily functioning. ? Narrative Note: []
--- NOTE | 2022-04-28 13:46 | BH.MDN ---
Multi-Disciplinary Note - Note 30-min Individual Time Started:: 11:30 Date: 04/28/22 Purpose of session/treatment goals addressed:: Reviewed current symptom and progress in IOP. Addressed treatment plan goals 1 and 2. Eye Contact:: Good Motor Activity:: Appropriate Appearance:: Disheveled Speech:: Appropriate Mood:: Anxious, Depressed Affect:: Congruent Thoughts:: Linear, Logical, No evidence of hallucinations/delusions noted Staff Interventions:: thought challenging Client Response:: Pt reports that he anxiety and depressive thoughts are little worse these past couple weeks. He attributes this to struggles that his brother has been having with depression. Reports that his brother is in a deep depression in which he is isolating and seems to have no pleasure in activities. Pt has been supportive and is focused on helping his brother with limited benefit. Pt is worrying and is catastrophizing the situation with thoughts that he brother will continue to decompensation and never function again. Worked together to challenge and reframe these thoughts. His brother's struggles have also got him ruminating on his own mental health. Worked together to identify and challenge negative self-talk. When asked about his intrusive healthy anxiety thoughts he states ok however shared that he has been on the verge of panic a couple times this week. We reviewed ways to challenge his intrusive thoughts and skills such as dominguez mind. Risks/Concerns:: no risks or concerns noted. Progress Toward Goals/Plan:: Slight regression this past week however pt reports that he continues to implement skills to lessen intrusive thoughts. Denies panic attacks or active suicidal ideations. He does report survival ambivalence when overwhelmed. 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 I think the cardiac fears are pretty much under control. Remained focus on identifying and implementing skills with extreme and absolute thinking. Will continue in IOP to prevent decompensation/re-admission, decrease intrusive thoughts, and improve functioning. Time Stopped:: 13:00
--- NOTE | 2022-05-03 09:00 | BH.SGPN.GN ---
Behaviors/Verbalizations/Mental Status: [] Client alert and oriented, casually dressed and groomed. Eye contact good. Motor activity appropriate. Speech within normal limits. Affect congruent, mood euthymic. Thoughts linear, logical, no signs of hallucinations or delusions. Reviewed client?s symptom tracker, no risk for suicidal ideation, plan, or intent as of 05/03/22. Client Response/Progress/Benefit: [] Client responded well to group by participating and being attentive in group. Reported that his emotion was optimistic. Client shared that he is achieving consistency with going to work and that he feels good his driveway is done finally. Client shared that his biggest stressor is watching his brother go through hardship currently. Client seemed to benefit from feedback from group members, along with giving tips and encouragement to peers. He will continue IOP tx to increase coping skills for management of depression and anxiety, increase self-esteem, and prevent decompensation. Narrative Note: []
--- NOTE | 2022-05-03 10:10 | BH.SGPN.GN ---
Behaviors/Verbalizations/Mental Status: [] Client alert and oriented, casually dressed and groomed. Eye contact good. Motor activity appropriate. Speech within normal limits. Affect congruent, mood euthymic. Thoughts linear, logical, no signs of hallucinations or delusions. Client Response/Progress/Benefit: [] Client responded well to session AEB sharing and listening attentively to others. Client provided examples of benefits of having social support including that you can have different perspectives to help you solves issues. Client also participated in group discussion regarding the different kinds of supports in our safety net and the things that weaken or prevent us from using our supports with identifying that overusing certain supports can make others get tired of helping you. Clinician provided psychoeducation on types of support including internal and external support, with client identifying family and hobbies as other supports. Client participated in experiential activity illustrating the importance of having multiple social supports. Client provided supportive feedback and problem solving throughout group activity. Client participated in group processing of the activity. Client appeared to benefit from increased knowledge of the benefits of social support and greater self-awareness. Will continue IOP treatment to decrease cognitive distortions and increase use of healthy coping skills. Narrative Note: []
--- NOTE | 2022-05-03 11:10 | BH.SGPN.GN ---
Behaviors/Verbalizations/Mental Status: [] Client alert and oriented, casually dressed and groomed. Eye contact good. Motor activity appropriate. Speech within normal limits. Affect congruent, mood euthymic. Thoughts linear, logical, no signs of hallucinations or delusions. Client Response/Progress/Benefit: [] Client was an active participant throughout AEB contributing to discussion, providing personal examples, and taking notes. Client provided input during discussion on the types of support our supports can provide. Client able to identify current support system and barriers that get in the way of using supports by drawing out their own support net. Client reported after identifying what type of supports they receive; they gained awareness that they could benefit from more tangible and informational supports. Client identified steps to achieve this by lifting weights, got to school, and read more. Client shared increasing informational and tangible supports will help him have additional things to fall back on. Client seemed to benefit from identifying the type of support client needs to work on improving. Client recommended to continue IOP tx to prevent decompensation, increase use of coping skills, and increase emotional regulation skills. Narrative Note: []
--- NOTE | 2022-05-05 09:01 | BH.SGPN.GN ---
Behaviors/Verbalizations/Mental Status: []Pt eye contact good, casually dressed, motor activity appropriate, speech normal rate and tone, mood euthymic, congruent affect, thoughts linear and intact, no evidence of delusions or hallucinations. Per client's symptom tracker he indicates a 1/5, with 5 being severe, for suicidal ideation and a 1/5 for suicidal intent. This is client's baseline. Does not appear to be imminent risk to harm self or others. Client Response/Progress/Benefit: [] Client respond well to session as evidenced by listening attentively to others and sharing thoughts and feelings. Client reported current stressor is struggling with saying no which has led him to take on additional side jobs that he really did not want to do. 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 Recognizes he tends to say yes to everything which has caused issues in the past. Client said he is happy that he is busy with various different side jobs but recognizes he needs to have balance. Stated mental twin as helping his brother get into counseling in his brother has first counseling appointment today. Additional mental positive as noting anxiety has been decreased recently and is using his skills to manage emotions in the moment. Progress noted with client reporting improved mood and improved ability to manage anxiety. Client to continue IOP to maintain gains, continue use of healthy coping skills, and prevent decompensation. Narrative Note: []
--- NOTE | 2022-05-05 10:15 | BH.SGPN.GN ---
Behaviors/Verbalizations/Mental Status: []Eye contact is good. Motor activity is appropriate. Appearance is casual. Speech is Appropriate. Mood is euthymic. Affect is full. Thoughts are linear and logical. No evidence of psychosis. Client Response/Progress/Benefit: []Pt was an active participant in group discussion, reporting distortions get in the way of problem-solving. Attentive during psychoeducation on problem-solving strategies. Participated in group experiential activity. Pt provided feedback during interactive group discussion in which pt and peers worked through an example of a problem (Managing Anxiety) in which they identified a goal (minimizing anxiety) and identified barriers. Group was able to complete the activity and pt was able to practice in the moment problem-solving and make connections between problem-solving for activity and in real-life situations. Increased awareness of how he responds to situations where it takes multiple efforts and ideas to solve a problem. Will continue IOP tx to promote mood stability and further improve daily functioning. Narrative Note: []
--- NOTE | 2022-05-05 11:12 | BH.SGPN.GN ---
Behaviors/Verbalizations/Mental Status: []Pt alert and oriented, casual dress, hygiene tended to. Eye contact good. Motor activity WNL. Speech appropriate rate and tone. Affect congruent, mood euthymic.? Thoughts linear, logical, no signs of hallucinations or delusions. Client Response/Progress/Benefit: []Pt engaged in session as evidenced by pt listening to others and providing input throughout. Pt completed problem solving example with group and identified a goal they want to work on. Goal identified as: communicating his triggers and mental health needs with supports. Pt?s barriers included: his schedule/responsibilities getting in the way, fear, and lack of awareness of his needs/triggers. Pt also identified steps they could take such as starting small, try to use mindfulness skills to reduce anxiety, as well as remind himself of the benefits of his supports on his mental health and wellness. Pt seemed to benefit from learning about problem solving method and rehearsing problem-solving skills in the moment. Pt will continue IOP tx to promote gains, further increase mood management, and further reduce unhealthy boundaries. Narrative Note: []
== END 2022-05-06 23:59 ==
LOC: BHIOP 07:43
PROVIDERS: PCP Pediatrics; Referring Provider Psychiatry & Neurology Psychiatry; Visit Provider Psychiatry & Neurology Psychiatry
DX: F32.9 Major depressive disorder, single episode, unspecified (principal); F41.1 Generalized anxiety disorder
CPT/HCPCS: S9480; 90832; 90834; 90837; 90853

== ENCOUNTER 2022-05-09 08:57 | Outpatient (RCR) | payer OTHER, SELFPAY ==
--- NOTE | 2022-05-10 09:05 | BH.SGPN.GN ---
Behaviors/Verbalizations/Mental Status: [] Eye contact is good. Motor activity is appropriate. Appearance is casual. Speech is Appropriate. Mood is euthymic. Affect is full. Thoughts are linear and logical. No evidence of psychosis. Reviewed daily check in sheet and no reports of suicidal ideations or intent. Client Response/Progress/Benefit: [] Pt was an active participant in group discussions. Attentive. Daily symptom tracker notes 2/5 for depression and anxiety. 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 Denies any significant distress related to his anxiety and intrusive thoughts. Overall notes progress. Benefited from group support, encouragement, and feedback. Will continue in IOP to prevent decompensation/-readmission and maintain gains. Narrative Note: []
--- NOTE | 2022-05-10 10:05 | BH.SGPN.GN ---
Behaviors/Verbalizations/Mental Status: []Eye contact is good. Motor activity is appropriate. Appearance is casual. Speech is Appropriate. Mood is euthymic. Affect is congruent. Thoughts are linear and logical. No evidence of psychosis. Client Response/Progress/Benefit: []Pt was an active participant in group discussions. Attentive during psychoeducation. Participated with peers in experiential activity. Pt participated in an interactive discussion with peers in which they worked together to define what coping skills are. Pt shares that coping skills have helped him to be able to measure his days by ?how well I?m handling my anxiety and not whether or not I have it?. Indicates this has given him a greater sense of hope. Group then identified unhealthy coping skills which included; lashing out, negative self-talk, isolating, substance abuse, avoidance, sleeping to escape, and distracting self with other?s problems. Psychoeducation on internal vs external coping skills. Benefited from increased awareness and education the benefits of have both internal and external coping skills. Will continue in IOP to maintain gains and prevent decompensation as pt finalizes aftercare plans. Narrative Note: []
--- NOTE | 2022-05-10 11:07 | BH.SGPN.GN ---
Behaviors/Verbalizations/Mental Status: []alert and oriented, casually dressed and groomed. Eye contact fair to good. Motor activity appropriate. Speech within normal limits. Affect congruent, mood euthymic. Thoughts linear, logical, no signs of hallucinations or delusions. Client Response/Progress/Benefit: []Pt responded well to session AEB taking notes and providing input and examples throughout. Group discussed the different categories of coping skills which included distraction, emotional release, grounding, self-love, and thought challenging. Pt created a coping skill menu identifying various skills to try in each category. Pt?s coping skill menu included: exercising, 5-senses, working, writing out daily accomplishments, and thinking in the brito. Appeared to benefit from increasing repertoire of healthy coping skills. Pt is demonstrating progress in his self-report of less isolation and panic. Pt will continue IOP tx to reinforce healthy coping skills and further promote mood stability. Narrative Note: []
--- NOTE | 2022-05-12 10:10 | BH.SGPN.GN ---
Behaviors/Verbalizations/Mental Status: []Pt alert and oriented, casually dressed and groomed. Eye contact good. Motor activity appropriate. Speech within normal limits. Affect congruent, mood euthymic. Thoughts linear, logical, no signs of hallucinations or delusions. Client Response/Progress/Benefit: []Pt was an active participant AEB contributing to discussion, taking notes, and engaging in group activity. Connected with the topic of pitfalls and listened to group discussion on barriers that prevent from choosing a healthier path to mental wellness. Group worked together to identify examples of personal pitfalls which included; resentment/anger, shutting down, low motivation, making excuses, denial, distortions, and unhealthy coping. Pt identified health anxiety, catastrophizing, and being easily distracted as personal pitfalls that have inhibited progress in the past.? Pt benefited from group as pt learned to better identify potential barriers to improving mental health symptoms. Pt will discharge from IOP tx today as pt has made significant progress and no longer meets criteria for IOP level of care. Narrative Note: []
--- NOTE | 2022-05-12 11:12 | BH.SGPN.GN ---
Behaviors/Verbalizations/Mental Status: []Pt alert and oriented, casually dressed and groomed. Eye contact good. Motor activity appropriate. Speech within normal limits. Affect congruent, mood euthymic. Thoughts linear, logical, no signs of hallucinations or delusions. Client Response/Progress/Benefit: []Pt receptive of session, engaged throughout AEB pt actively listening and contributing to discussion, as well as taking notes.? Pt participated in the experiential activity and did well to communicate ideas with peers and manage emotions. Pt and group processed how the emotions and perspective of the group impacted the activity. Pt reported his own excitement made it difficult to slow down and remain patient in order to reach their goal at times. Group worked together to identify different coping skills to help manage pitfalls. Pt identified pitfalls they struggle with such as health anxiety and distortions. Pt plans to work on the pitfall of health anxiety by beginning to work towards returning to a regular fitness routine and having a workout partner to aid in holding him accountable. Benefited from identifying personal pitfalls and strategies to overcome these pitfalls. Will discharge from [facility] tx given progress made and is to begin the aftercare program beginning 05/19. Narrative Note: []
--- NOTE | 2022-05-12 15:18 | BH.DS_ITS ---
Discharge Summary - Demographics Date of Admission:: 03/22/22 Discharge Date: 05/12/22 Presenting Problems at Admission:: Pt is a 21 year old male with hx of MDD, OCD, and ALEJANDRO. Recently admitted to [facility] from 03/02/22-03/08/22 due to suicidal ideations with plan to drive 100mph though town and crack ? or by copyright expert. Pt's mother drove pt to [facility] and he was voluntarily admitted. Reports increasing health anxiety for several days prior to admission. Intrusive health thoughts resulting in fear of having a heart attack, stroke, or acute illness that will kill him. Intrusive thoughts are so overwhelming that pt will have panic attacks then get so distressed that he becomes suicidal. Reports intense panic attack on 03/02/22 with tremors, sweating, and somatic symptoms. Believed that he was going to continue to regress mentally which led to hope lessness. Pt completed IOP (08/2021-09/2021) and had been doing well till he had a injury at home with scissors which resulted in an ER visit. This was a trigger to health anxiety thoughts. Endorses poor sleep, low motivation, low energy, hopelessness, and irritability. Poor focus, concentration, and memory. Racing thoughts. Denies active suicidal ideations, plan, or intent. Reports minor SI since discharge from hospital. Passive thoughts of and survival ambivalence when overwhelmed. Denies HI or psychosis. Occasional marijuana use. Family hx of Bipolar. Two completed suicides in the family. Currently lives with parents and his brother. Discharge Diagnoses:: 1. 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 2. Generalized anxiety disorder. 3. Borderline personality disorder. 4. Illness anxiety disorder Reason for Discharge:: Has completed all treatment plan goals and no longer meets [facility] level of care. Pt will be discharged from [facility] level of care. - Treatment Progress During Treatment & Response: Pt responded well to treatment. Consistent and engaged during IOP. According to DSM-5 outcomes pt had an overall 54% reduction in symptoms. Pt had a 42% reduction in the depression domain, 66% reduction in the anger domain, a 55% reduction in the anxiety domain, and a 50% reduction in repetitive thoughts and behaviors. Pt has returned to work, exercising, and reports improved functioning. Pt also able to identify negative thought messages which can lead to overwhelming depression and skills to manage these thoughts (re-framing, distraction, challenging, and journaling). Pt has been journaling every night and including his mental health wins for the day which has helped his depression. We reviewed his strategies to manage intrusive health anxiety thoughts (i.e. dominguez mind). He was also able to identify several calming skills for his anxiety. Since starting IOP pt reports significant progress stating I couldn't exercise, work, or spend time with friends b/c of my anxiety and now I'm doing all of those. This past week he has begun to lift weights again. He reports mild anxiety related to somatic sensations and fear of health effects, however was able to manage. Issues Still to be Addressed:: Will continue to benefit from ongoing counseling to work on health anxiety, intrusive thoughts, absolute thinking, and depression. Discharge Recommendations/Instructions:: Pt has appt with outpatient counselor Karley at [facility] on 05/16/22. Pt has appt with rn iv therapy at [place] [id number] on 05/16/2022. Plans to start [facility] Aftercare group on 05/20/22 Discharge Handout: Complete Discharge Handout with client on aftercare options and continuity of care.
--- NOTE | 2022-05-12 15:18 | BH.MDN ---
Multi-Disciplinary Note - Note 45-min Individual Time Started:: 09:15 Date: 05/12/22 Purpose of session/treatment goals addressed:: Met with pt to review progress and outcome scores. Pt is set to discharge from [facility] today. Eye Contact:: Good Motor Activity:: Appropriate Appearance:: Casual Speech:: Appropriate Mood:: Euthymic Affect:: Full Thoughts:: Linear, Logical, No evidence of hallucinations/delusions noted Staff Interventions:: discharge planning, reviewed DSM-5 Client Response:: Pt was open to session and responded well. Used the session to review progress on treatment plan goals, review outcome scores, and finalize aftercare. Reviewed 'crisis plan' or internal and external skills to utilize when feeling overwhelmed. Pt also able to identify negative thought messages which can lead to overwhelming depression and skills to manage these thoughts (re-framing, distraction, challenging, and journaling). Pt has been journaling every night and including his mental health wins for the day which has helped his depression. We reviewed his strategies to manage intrusive health anxiety thoughts (i.e. dominguez mind). He was also able to identify several calming skills for his anxiety. Since starting [facility] pt reports significant progress stating I couldn't exercise, work, or spend time with friends b/c of my anxiety and now I'm doing all of those. This past week he has begun to lift weights again. He reports mild anxiety related to somatic sensations and fear of health effects, however was able to manage. Risks/Concerns:: No risks or concerns noted. Progress Toward Goals/Plan:: Progress noted per pt report. According to DSM-5 outcomes pt had an overall 54% reduction in symptoms. Pt had a 42% reduction in the depression domain, 66% reduction in the anger domain, a 55% reduction in the anxiety domain, and a 50% reduction in repetitive thoughts and behaviors. Pt has returned to work, exercising, and reports improved functioning. Has completed all treatment plan goals. Pt will be discharged from [facility] level of care. Time Stopped:: 10:00
== END 2022-05-12 13:00 | disposition home or self-care (01) ==
LOC: BHIOP 08:57
PROVIDERS: PCP Pediatrics; Referring Provider Psychiatry & Neurology Psychiatry; Visit Provider Psychiatry & Neurology Psychiatry
DX: F33.2 Major depressive disorder, recurrent severe without psychotic features (principal); F41.1 Generalized anxiety disorder; F60.3 Borderline personality disorder
CPT/HCPCS: S9480; 90834; 90853

== ENCOUNTER 2022-05-19 13:00 | Outpatient (RCR) | payer OTHER, SELFPAY ==
--- NOTE | 2022-05-19 14:00 | BH.COMM ---
Communication Note - Communication with Client Communication Note: Presented completed IOP and presents today to starting relapse prevention group which meets once weekly (1.5 hours) for 10 weeks. Case discussed with Dr. Mckay with plan to admit with dx of F33.2
--- NOTE | 2022-05-19 14:00 | BH.SGPN.GN ---
Behaviors/Verbalizations/Mental Status: []Client alert and oriented, casually dressed and groomed. Eye contact good. Motor activity appropriate. Speech within normal limits. Affect congruent, mood anxious and euthymic. Thoughts linear, logical, no signs of hallucinations or delusions. Client Response/Progress/Benefit: []Pt receptive of session, engaged throughout. Pt completed his aftercare self-reflection worksheet sharing they saw their therapist this week and psychiatrist appointment is scheduled, they are taking medications as prescribed, and have been using opposite action, reframing, and going for walks as healthy coping skills. Receptive of discussion on healthy habits and habit formation, as well its importance in maintaining mental health stability. Pt worked cooperatively with group to identify benefits of developing and maintaining healthy habits. Engaged in brainstorming strategies for identifying and changing unhealthy habit patterns. Reported he wants to work on challenging his unhealthy habit of stress eating with intentionally going for a walk outside instead. Pt seemed to benefit from support from peers and increasing understanding of healthy habit formation benefits and strategies. Will continue IOP aftercare group and tx to maintain gains and prevent decompensation. Narrative Note: []
--- NOTE | 2022-05-19 14:20 | BH.MTP ---
Master Treatment Plan - Patient Information Program Physician:: Dr. Evelyn Huizar Primary Therapist:: VARGHESE Dalton - Psychiatric Diagnoses Psychiatric Diagnoses:: 1. 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 2. Generalized anxiety disorder. 3. Borderline personality disorder. 4. Illness anxiety disorder Diagnosis Code(s):: F 33.2 - Estimated LOS Estimated LOS (in weeks):: 8 Problem/Goal #1 - Problem/Goal #1 Stated Goal:: client will maintain or see a reduction in symptoms AEB client score on the DSM 5 cross-cutting measure and improve client's daily functioning. - Objectives Objective #1 Stated Objective: Client will continue to consistently apply healthy coping skills to maintain progress made in IOP tx. Interventions: Through group therapy, client will review warning signs and triggers as well as healthy coping skills learned in IOP tx to successfully maintain gains while transitioning into outpatient therapy. Discharge Criteria: Client will have accomplished this goal when client's score on the DSM-5 cross-cutting measure has either maintained or reduced over a 12 week period. Target Date: 07/14/22 Review Date: 06/16/22 Objective #2 Stated Objective: Client will learn and utilize 2-3 maintenance strategies to prevent decompensation. Interventions: Through group therapy, client will be provided with education on healthy maintenance behaviors, relapse prevention techniques, and healthy coping strategies. Discharge Criteria: Client will have accomplished this goal when can report using at least 2 maintenance skills to prevent decompensation. Target Date: 07/14/22 Review Date: 06/16/22
--- NOTE | 2022-06-02 14:00 | BH.SGPN.GN ---
Behaviors/Verbalizations/Mental Status: []Pt alert and oriented, casually dressed and groomed. Eye contact good. Motor activity appropriate. Speech within normal limits. Affect congruent, mood euthymic. Thoughts linear, logical, no signs of hallucinations or delusions. Client Response/Progress/Benefit: []Pt responded well to session AEB sharing and listening attentively to others. Pt reported he saw his therapist and psychiatrist recently and he has been taking his medications consistently. Pt shared he had a panic attack on his birthday as this is a triggering day for him, but he was able to bounce back quickly from this. Pt has also been walking a lot which he reports is helpful. Pt participated in group discussion defining affirmations and why they are important. Pt provided insight throughout clinician?s presentation of tips for writing personal affirmations. Pt wrote own affirmations, including ?today I will show myself some loving kindness.? Pt appeared to benefit from increased knowledge of affirmation writing and increased self-awareness. Will continue aftercare treatment to reinforce healthy coping skills and promote gains. ? Narrative Note: []
== END 2022-06-06 23:59 ==
LOC: BHOG 13:00
PROVIDERS: PCP Pediatrics; Visit Provider Psychiatry & Neurology Psychiatry
DX: F33.2 Major depressive disorder, recurrent severe without psychotic features (principal)
CPT/HCPCS: 90853

== ENCOUNTER 2022-06-07 08:06 | Outpatient (RCR) | payer OTHER, SELFPAY ==
--- NOTE | 2022-06-14 14:06 | BH.MTP ---
Master Treatment Plan - Patient Information Program Physician:: Dr. Evelyn Huizar Primary Therapist:: Heri Blas [facility] - Psychiatric Diagnoses Psychiatric Diagnoses:: 1. 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 2. Generalized anxiety disorder. 3. Borderline personality disorder. 4. Illness anxiety disorder Diagnosis Code(s):: F 33.2 - Estimated LOS Estimated LOS (in weeks):: 8 Problem/Goal #1 - Problem/Goal #1 Stated Goal:: client will maintain or see a reduction in symptoms AEB client score on the DSM 5 cross-cutting measure and improve client's daily functioning. - Objectives Objective #1 Stated Objective: Client will continue to consistently apply healthy coping skills to maintain progress made in IOP tx. Interventions: Through group therapy, client will review warning signs and triggers as well as healthy coping skills learned in IOP tx to successfully maintain gains while transitioning into outpatient therapy. Discharge Criteria: Client will have accomplished this goal when client's score on the DSM-5 cross-cutting measure has either maintained or reduced over a 12 week period. Target Date: 07/14/22 Review Date: 06/16/22 Objective #2 Stated Objective: Client will learn and utilize 2-3 maintenance strategies to prevent decompensation. Interventions: Through group therapy, client will be provided with education on healthy maintenance behaviors, relapse prevention techniques, and healthy coping strategies. Discharge Criteria: Client will have accomplished this goal when can report using at least 2 maintenance skills to prevent decompensation. Target Date: 07/14/22 Review Date: 06/16/22
--- NOTE | 2022-06-16 13:14 | BH.TPR ---
Treatment Plan Review Date of Admission:: 05/19/22 Date of Treatment Plan Review:: 06/16/22 Admitting Diagnoses:: 1. 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 2. Generalized anxiety disorder. 3. Borderline personality disorder. 4. Illness anxiety disorder Current Diagnoses:: 1. 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 2. Generalized anxiety disorder. 3. Borderline personality disorder. 4. Illness anxiety disorder Patient's Response to Treatment:: Pt responding well to tx. He has maintained mostly consistent attendance, outside of 1-2 cancellations due to work scheduling conflicts. Pt does well to apply the skills he has learned outside of tx and is actively engaged in discussion when in attendance. Status of Current Problems and Symptoms: Pt reporting continued anxiety due to healthy related symptoms, as well as ongoing intrusive thoughts; however, he reports improved ability to manage current sx. Pt has shown improvement with mood and outlook on life and is actively making strides to prioritize his mental health, as well as establish consistent healthy boundaries. Pt has successfully returned to responsibilities. Pt reports continuing to maintain a healthier relationship with his parents. Problem #1 Problem Name:: Pt will maintain or see a reduction in sx Status of Goals:: Obj 1 - was able to make continued progress in sx management per self-report, as well as reduction of DSM 5 scores at time of review. Based on pt's self-report he reports improved mood, increased self-care, using skills more consistently, successfully challenging thoughts on a more consistent basis, and improved use of healthy boundary setting. Pt DSM-5 scores reflect a 42% overall reduction of sx. Obj 2 - complete with ongoing work encouraged. Client has been consistently reporting using self-talk, thought challenging, communication of boundaries with supports, and opposite action to cope. Team Recommendations:: Recommended client continue IOP aftercare group in addition to attending regular outpatient counseling in order to maintain gains.
--- NOTE | 2022-06-16 14:00 | BH.SGPN.GN ---
Behaviors/Verbalizations/Mental Status: []Pt alert and oriented, casually dressed. Eye contact good. Motor activity appropriate. Speech within normal limits. Affect congruent, mood euthymic. Thoughts linear, logical, no signs of hallucinations or delusions. Client Response/Progress/Benefit: []Pt responded well to session, engaged and providing emotional support. Pt checked in using aftercare worksheet and pt reports he did see his therapist this week, has a psychiatry appointment next week, and pt has been taking medications. Pt has been using coping skills such as thought challenging and going for walks when stressed out. Pt participated in the discussion of self-love and how one can increase this. Pt reported it is challenging to have self-love when you compare yourself to others, but this is something pt continues to work on challenging. Pt selected strategies to improve self-love and shared this week pt is going to focus on filling his body with food that is nurturing and is going to try to start keeping a food log to help encourage him to do so. Pt appeared to benefit from increasing skills to build self-love. Pt will continue IOP aftercare to further increase mood stability and promote gains made in IOP. Narrative Note: []
== END 2022-07-06 23:59 ==
LOC: BHOG 08:06
PROVIDERS: PCP Pediatrics; Visit Provider Psychiatry & Neurology Psychiatry
DX: F33.2 Major depressive disorder, recurrent severe without psychotic features (principal); F41.1 Generalized anxiety disorder; F60.3 Borderline personality disorder
CPT/HCPCS: 90853

== ENCOUNTER 2022-07-07 08:16 | Outpatient (RCR) | payer OTHER, SELFPAY | END 2022-07-20 14:58 | disposition home or self-care (01) | LOC: BHOG 08:16 | PROVIDERS: PCP Pediatrics; Visit Provider Psychiatry & Neurology Psychiatry | DX: Z00.00 Encounter for general adult medical examination without abnormal findings (principal) ==